=== PATIENT | female | born 1980 | race Caucasian/White ===

== ENCOUNTER 2024-03-13 16:58 | Emergency (ER) | payer MEDICAID, SELFPAY ==
[2024-03-13 17:05] VITALS: BP 121/75; PULSE 99; RESP 17; TEMP 36.6; O2SAT 96; BMI 40.2
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
[2024-03-13] MEDS: orphenadrine 30 mg/mL Inj 2 mL 60 MG IM (18:10)
[2024-03-13] MEDS: ketorolac 60 mg/2 mL INJ IM (18:10)
[2024-03-13] MEDS: HYDROcodone-acetaminophen 7.5-325 mg Tablet 1 TAB PO (20:09)
[2024-03-13 20:56] VITALS: BP 123/72; PULSE 91; RESP 16; TEMP 36.6; O2SAT 97
== END 2024-03-13 20:10 | disposition home or self-care (01) ==
PROVIDERS: Emergency Provider Physician Assistant
DX: Z04.1 Encounter for examination and observation following transport accident (principal); S13.9XXA Sprain of joints and ligaments of unspecified parts of neck, initial encounter; S30.0XXA Contusion of lower back and pelvis, initial encounter; V89.2XXA Person injured in unspecified motor-vehicle accident, traffic, initial encounter
CPT/HCPCS: 70450; 72125; 72128; 72131; 96372; 99284; J1885; J2360